=== PATIENT | female | born 1985 | race Two or more races ===

== ENCOUNTER 2024-06-28 16:40 | Emergency (ER) | payer MEDICAID, SELFPAY ==
[2024-06-28 16:56] VITALS: BP 121/79; PULSE 65; RESP 16; TEMP 36.8; O2SAT 100; BMI 35.3
--- NOTE | 2024-06-28 17:02 | XR_ITS ---
Examination: Complete OB ultrasound, less than 14 weeks, transabdominal Date and time of exam: June 28, 2024 at 1724 hrs. Indications: Early by history, onset vaginal bleeding beginning 4 days ago with severe pelvic cramping beginning today Technique: Obstetrical ultrasound images less than 14 weeks performed via transabdominal imaging Findings: Uterus 10.1 x 6.7 x 7.9 cm anteverted Intrauterine gestational sac corresponding to 6 week 6 day gestational age No pole, no cardiac activity Right ovary 2.1 x 3.4 x 2.3 cm arterial flow Left ovary 2.0 x 2.4 x 2.1 cm arterial flow No fluid in the cul-de-sac Impression: Empty intrauterine gestational sac corresponding to 6 weeks 6 days gestational age Recommend transvaginal pelvic sonography follow-up to assess for pole and cardiac activity
--- NOTE | 2024-06-28 17:02 | PD.EDRME ---
Rapid Medical Screening Exam RME Arrival date/time: 06/28/24 16:40 39-year-old female G3, presents to the emergency department complaints of vaginal bleeding patient reports being approximately 8 weeks Chief Complaint: Vaginal Bleeding Vital signs: Vital Signs Temperature 98.2 F 06/28/24 16:56 Pulse Rate 65 06/28/24 16:56 Respiratory Rate 16 06/28/24 16:56 Blood Pressure 121/79 06/28/24 16:56 Pulse Oximetry (%) 100 06/28/24 16:56 Oxygen Delivery Method Room Air 06/28/24 16:56
[2024-06-28 17:24] LABS: Basophils % (Auto) 0 % (0-2.5); Eosinophils # (Auto) 0.1 Thou/mm3 (0.0-0.5); Eosinophils % (Auto) 1 % (0-10); Hematocrit 36.6 % (36.0-46.0); Hemoglobin 11.5 g/dL (12.0-16.0); Immature Granulocytes % (Auto) 0 % (0-0); Immature Granulocytes Auto 0.03 Thou/mm3 (0.00-0.00); Lymphocytes # (Auto) 2.7 Thou/mm3 (1.0-4.8); Lymphocytes % (Auto) 29 % (10-50); Mean Corpuscular HGB Conc 31.4 g/dl (31.0-37.0); Mean Corpuscular Hemoglobin 25.6 pg (25.0-35.0); Mean Corpuscular Volume 82 fL (80-100); Monocytes # (Auto) 0.6 Thou/mm3 (0.0-0.8); Monocytes % (Auto) 7 % (0-12); Neutrophils # (Auto) 5.9 Thou/mm3 (1.8-7.7); Neutrophils % (Auto) 63 % (37-80); Nucleated Red Blood Cell % 0 /100 WBC (0); Platelet Count 327 Thou/mm3 (140-440); RDW Standard Deviation 51.1 fL (36.4-46.3); Red Blood Count 4.49 Miln/mm3 (4.00-5.20); White Blood Count 9.4 Thou/mm3 (3.6-11.0)
[2024-06-28 17:45] LABS: Alanine Aminotransferase 12 U/L (10-49); Albumin/Globulin Ratio 1.7 (1.2-2.2); Alkaline Phosphatase 70 U/L (46-116); Anion Gap 4 (7-16); Aspartate Amino Transferase 14 U/L (0-34); BUN/Creatinine Ratio 12 Ratio (12-20); Bilirubin,Total 0.3 mg/dL (0.3-1.2); Blood Urea Nitrogen 7 mg/dL (9-23); Calcium 9.9 mg/dL (8.3-10.6); Calcium (Corrected) 9.9 mg/dL (8.5-10.1); Carbon Dioxide 25.5 mMol/L (20.0-31.0); Chloride 103 mMol/L (98-107); Creatinine (Component) 0.6 mg/dL (0.6-1.3); Estimated Creatinine Clearance 151.2 mL/min (>60); Glucose 92 mg/dL (74-106); Osmolality,Calculated 262 (275-295); Potassium 3.9 mMol/L (3.4-5.1); Sodium 132 mMol/L (136-145); eGFR > 60 See Note
[2024-06-28 17:47] LABS: Collection Type, Urine Clean Catch
[2024-06-28 17:54] LABS: Bilirubin,Urine Negative (Negative); Blood,Urine 2+ (Negative); Clarity,Urine Clear (Clear/Hazy); Color,Urine Colorless (Lt Yel-Yel); Glucose, Urine Negative (Negative); Ketones,Urine Negative (Negative); Leukocyte Esterase,Urine Negative (Negative); Nitrite,Urine Negative (Negative); Protein,Urine Negative (Neg - Trace); RBC,Urine 1 /hpf (0-3); Specific Gravity,Urine 1.006 (1.001-1.035); Squamous Epithelial Cell,Urine 2 /hpf (0-5); Urobilinogen,Urine Negative mg/dL (0.0-1.0); WBC,Urine < 1 /hpf (0-5)
[2024-06-28 18:16] LABS: Beta HCG,Quantitative 17485 mIU/mL (<5.0)
[2024-06-28 20:57] VITALS: BP 123/76; PULSE 69; RESP 19; TEMP 36.9; O2SAT 100
--- NOTE | 2024-06-28 21:42 | PD.EDVAGBL ---
ED OB Contraction Preg RMI/HPI General Chief complaint: Vaginal Bleeding Stated complaint: 2 MONTHS PREG, VAG BLEED Time Seen by Provider: 06/28/24 21:42 Arrival date/time: 06/28/24 16:40 This is a 39-year-old female that comes in with complaint of vaginal spotting and mild cramping. Patient states approximately 3 weeks ago she found out she was . Patient has her first OB appointment next week. Patient was scared that she could be having a miscarriage. Patient is a 3 para 2. Patient states her last menstrual cycle was sometime in March but does not remember the date. Patient has a history of hypothyroid. RME / HPI RME / HPI Narrative: 06/28/24 16:40 39-year-old female G3, presents to the emergency department complaints of vaginal bleeding patient reports being approximately 8 weeks Related Data Previous Rx's ?Medication ?Instructions ?Recorded methimazole 10 mg tablet 10 mg PO BID #60 tabs 11/14/23 Allergies Allergy/AdvReac Type Severity Reaction Status Date / Time No Known Allergies Allergy Mild Verified 11/14/23 14:46 Review of Systems Review of Systems Systems Reviewed: All systems reviewed, normal except as documented Past Medical History Past Medical History CARDIAC: Negative Congestive Heart Failure RESPIRATORY: Negative Chronic Obstructive Pulmonary Disease (COPD) GENITOURINARY: Negative Renal Disease ENDOCRINE: Positive Hyperthyroidism; Negative Diabetes Mellitus Type 1 or Diabetes Mellitus Type 2 Social History SMOKING STATUS: Never smoker ED Exam General General appearance: Present alert and in no apparent distress Head Head exam: Present atraumatic Eye Eye exam: Present normal appearance, PERRL and EOMI ENT ENT exam: Present normal exam, normal oropharynx and mucous membranes moist Neck Neck exam: Present normal inspection, full ROM and trachea midline Chest Chest inspection: Present normal inspection and symmetric chest wall rise Respiratory Respiratory exam: Present normal lung sounds bilaterally Cardiovascular Cardiovascular exam: Present regular rate, normal rhythm and normal heart sounds Abdominal Exam Abdominal exam: Present soft and other (no pain to palpation ) Extremities Exam Extremities exam: Present normal inspection and full ROM Back Exam Back exam: Present normal inspection and full ROM Neurological Exam Neurological exam: Present alert, oriented X3 and CN II-XII intact Psychiatric Psychiatric exam: Present normal affect and normal mood Skin Skin exam: Present warm, dry, intact and normal color Course Quality Measures none Orders Category Date Time Status US OB <= 14 weeks fetus Stat Exams 11/16/24 17:02 Completed ABO/RH Type Stat Lab 06/28/24 17:11 Completed Beta HCG,Quantitative Stat Lab 06/28/24 17:11 Completed CBC Stat Lab 06/28/24 17:11 Completed Comprehensive Metabolic Panel Stat Lab 06/28/24 17:11 Completed UA [Urinalysis] Stat Lab 06/28/24 17:20 Completed Vital Signs Vital signs: Vital Signs Temperature 98.2 F 06/28/24 16:56 Pulse Rate 65 06/28/24 16:56 Respiratory Rate 16 06/28/24 16:56 Blood Pressure 121/79 06/28/24 16:56 Pulse Oximetry (%) 100 06/28/24 16:56 Oxygen Delivery Method Room Air 06/28/24 16:56 Vaginal Bleeding MDM Narrative MDM Narrative: us : Findings: Uterus 10.1 x 6.7 x 7.9 cm anteverted Intrauterine gestational sac corresponding to 6 week 6 day gestational age No pole, no cardiac activity Right ovary 2.1 x 3.4 x 2.3 cm arterial flow Left ovary 2.0 x 2.4 x 2.1 cm arterial flow No fluid in the cul-de-sac Impression: Empty intrauterine gestational sac corresponding to 6 weeks 6 days gestational age Recommend transvaginal pelvic sonography follow-up to assess for pole and cardiac activity Labs [place] [id number]. I told patient she will need to follow up with OBGYN in 1-2 days. Patient told her can be very early and this is why no sac seen. Pt told to have hcg quant checked with primary or obgyn. Pt comfortable with plan of care. Patient data External records reviewed:: [facility] previous records Clinical information provided by:: patient Social determinants that could affect healthcare access:: none Patient has the following chronic illnesses:: none How is presenting disease/condition affected by chronic disease/condition?: no chronic disease Evaluation data The following diagnostics were reviewed and interpreted by me:: lab results and radiology exam(s) Lab and/or radiology exams considered but not ordered:: none Interpretation Summary: see note Medications / Prescriptions Medications or Prescriptions considered but not ordered:: none Medication administrations:: none Consultations Consultation(s) initiated? (list below): No Diagnosis Vaginal Bleeding Differential Diagnosis: missed , threatened , dysfunctional uterine bleeding and ectopic without intrauterine Most likely diagnosis given after review of the tests above:: threatned early Admission Indicated Admission indicated?: not indicated Admission Request Was there a request for admission?: No Disposition Plan Disposition Plan: Discharge Discharge Attestation Discharge Attestation: The patient and all family members were given an opportunity to ask questions and understood the discharge instructions. Discharge instructions specifically effects, indications for sooner follow up or return to the emergency department, and the expected course of current diagnosis. Patient condition: Stable Discharge Plan Plan Patient Disposition: HOME (Self Care) Patient condition on transfer: Stable Prescriptions/Referrals Prescriptions/Med Rec: No Action methimazole 10 mg tablet 10 mg PO BID Qty: 60 0RF Referrals: Renard Bermudez MD [Primary Care Provider] - In 1 week Problem List Clinical Impression: Vaginal bleeding, Miscarriage, threatened, early Patient/Caregiver Discharge Instructions Discharge Activity: activity as tolerated Education Materials: ED Possible Miscarriage ... Additional Instructions: Follow-up with primary provider in 1 to 2 days. Keep scheduled OB appointment next week. Come back to the emergency room if symptoms change or worsen. Print Language: Macanese Stand Alone Forms: Katerine Award Info., Patient Portal Info Letter PA/KAYLIN Supervising Physician KASI/KAYLIN Supervising Physician: NATHALIA
== END 2024-06-28 21:59 | disposition home or self-care (01) ==
PROVIDERS: Nurse Practitioner Primary Care; Emergency Provider Emergency Medicine; PCP Family Medicine
DX: O20.0 Threatened abortion (principal); Z3A.01 Less than 8 weeks gestation of pregnancy
CPT/HCPCS: 36415; 76801; 80053; 81001; 84702; 85025; 86900; 86901; 99284